=== PATIENT | female | born 1990 | race Caucasian/White ===

== ENCOUNTER 2016-06-26 19:19 | Emergency (ER) | payer OTHER ==
[~2016-06-26] VITALS: Ht 154.9 cm; Wt 65.8 kg
[2016-06-26 19:43] VITALS: BP 127/95
--- NOTE | 2016-06-26 19:53 | NUR ---
TO ER BED 8
[2016-06-26] MEDS ORDERED: IBUPROFEN 600 MG TAB PO ONE (19:55)
--- NOTE | 2016-06-26 19:58 | NUR ---
25 Y/O F HERE C/O KNEE PAIN R/T S/P FALL X 3 WKS AGO. DENIES ANY SOB, OR FEVER. AFFECTED EXTREMITY PINK, WARM TO TOUCH. DENIES ANY LOST OF SENSATION TO THE AFFECTED EXTREMITY. PT SEEMS IN PAIN. TECHNICAL SUPPORT CONSULTANT AWARED OF IT.
[2016-06-26 21:23] VITALS: BP 104/50
--- NOTE | 2016-06-26 21:23 | NUR ---
Patient discharged with v/s stable. Written and verbal after care instructions given and explained. Patient alert, oriented and verbalized understanding of instructions. Ambulatory with steady gait. All questions addressed prior to discharge. ID band removed. Patient advised to follow up with PMD. Rx of MOTRIN AND NORCO given. Patient educated on indication of medication including possible reaction and side effects. Opportunity to ask questions provided and answered.
== END 2016-06-26 21:23 | disposition home or self-care (01) ==
LOC: MED 19:19
DX: M25.562 Pain in left knee (principal)

== ENCOUNTER 2019-10-27 11:07 | Emergency (ER) | payer OTHER ==
[~2019-10-27] VITALS: Ht 167.6 cm; Wt 20.4 kg
[2019-10-27] MEDS ORDERED: KETOROLAC 60 MG/2 ML VIAL IM ONE (11:15)
[2019-10-27 11:17] VITALS: BP 120/79
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
--- NOTE | 2019-10-27 12:11 | NUR ---
PT DEMONSTRATED PROPER USE OF CRUTCHES WITHOUT ANY ISSUES
[2019-10-27 12:16] VITALS: BP 120/79
== END 2019-10-27 12:16 | disposition home or self-care (01) ==
LOC: MED 11:07
DX: S80.02XA Contusion of left knee, initial encounter (principal); W19.XXXA Unspecified fall, initial encounter; Y93.89 Activity, other specified; Y92.89 Other specified places as the place of occurrence of the external cause; Y99.8 Other external cause status
CPT/HCPCS: 73562; 96372; 99283; J1885

== ENCOUNTER 2021-01-24 15:34 | Emergency (ER) | payer OTHER ==
[~2021-01-24] VITALS: Ht 154.9 cm; Wt 63.5 kg
[2021-01-24 15:38] VITALS: BP 126/62
--- NOTE | 2021-01-24 16:25 | NUR ---
PATIENT AMBULATED TO BED 8
--- NOTE | 2021-01-24 16:26 | NUR ---
PT AMBULATED TO BED 8
--- NOTE | 2021-01-24 16:30 | NUR ---
30 Y FEMALE WITH C/O LEFT KNEE PAIN X TODAY. PT STATED SHE HAS FALLEN ON HER KNEE TWICE PRIOR TO TODAY. PT STATED SHE HAS TO STAND ON HER FEET ALL DAY FOR WORK WHICH HAS MADE IT WORSE. PT ALSO STATED "SHE FEELS LIKE HER KNEE NEEDS TO POP." SWELLING NOTED ON L KNEE AND PT UNABLE TO MAKE KNEE COMPLETELY STRAIGHT. PMH: DENIES NKA
--- NOTE | 2021-01-24 17:07 | NUR ---
DR. CORONADO BEDSIDE EVALUATING PT
--- NOTE | 2021-01-24 17:50 | NUR ---
PT AMBULATED TO RESTROOM
--- NOTE | 2021-01-24 17:51 | NUR ---
PT AMBULATED TO BED 8
--- NOTE | 2021-01-24 18:10 | NUR ---
Patient appears to be resting comfortably in bed with eyes open. Vital Signs within normal limits and charted. Respirations even and unlabored. Bed in lowest position with siderail x1 up. Will continue to monitor and assess patient
--- NOTE | 2021-01-24 18:12 | NUR ---
xray bedside with pt
[2021-01-24] MEDS ORDERED: IBUP-2213 PO (18:46)
[2021-01-24 19:00] VITALS: BP 103/63
== END 2021-01-24 19:00 | disposition home or self-care (01) ==
LOC: MED 15:34
DX: M25.562 Pain in left knee (principal); Z79.1 Long term (current) use of non-steroidal anti-inflammatories (NSAID)
CPT/HCPCS: 29505; 73562; 99283; Q0092

== ENCOUNTER 2023-04-12 09:06 | Emergency (ER) | payer OTHER ==
[~2023-04-12] VITALS: Ht 154.9 cm; Wt 84.8 kg
[~2023-04-12 09:06] MED LIST: IBUP-2213 PO
[2023-04-12 09:17] VITALS: BP 120/61; PULSE 87; RESP 16; TEMP 97.9; O2SAT 95
[2023-04-12 10:03] LABS: BILIRUBIN,URINE 1+ (NEGATIVE); BLOOD, URINE 3+ (NEGATIVE); LEUKOCYTE ESTERASE ,URINE TRACE (NEGATIVE); NITRITE, URINE POSITIVE (NEGATIVE); PH,URINE 6.5 (5.0-9.0); PROTEIN,URINE 2+ (NEGATIVE); UGLUCOSE NEGATIVE (NEGATIVE)
[2023-04-12 10:05] LABS: APPEARANCE,URINE CLOUDY (CLEAR); COLOR,URINE STRAW (YELLOW)
[2023-04-12 10:14] LABS: BACTERIA,URINE FEW /HPF (None Seen); RBC,URINE 20-50 /HPF (0-5); SQUAMOUS EPITHELIAL CELL,UR 0-3 (FEW) /LPF (0-3 (FEW)); WBC,URINE 0-5 /HPF (0-5)
[2023-04-12 10:15] LABS: ICTOTEST NEGATIVE (NEGATIVE)
[2023-04-12] MEDS ORDERED: CIPR500T4 PO ×2 (10:41→11:42)
[2023-04-12 10:47] VITALS: BP 121/70; PULSE 80; RESP 12; TEMP 98; O2SAT 98
== END 2023-04-12 10:47 | disposition home or self-care (01) ==
LOC: MED 09:06
DX: N39.0 Urinary tract infection, site not specified (principal); Z79.899 Other long term (current) drug therapy
CPT/HCPCS: 81001; 81025; 99283

== ENCOUNTER 2023-04-23 11:19 | Emergency (ER) | payer OTHER ==
[~2023-04-23] VITALS: Ht 154.9 cm; Wt 81.6 kg
[~2023-04-23 11:19] MED LIST changes: +CIPR500T4 PO
[2023-04-23 11:37] VITALS: BP 120/84; PULSE 77; RESP 18; TEMP 97.8; O2SAT 99
[2023-04-23 12:05] LABS: BILIRUBIN,URINE 2+ (NEGATIVE); BLOOD, URINE 3+ (NEGATIVE); LEUKOCYTE ESTERASE ,URINE 1+ (NEGATIVE); NITRITE, URINE POSITIVE (NEGATIVE); PROTEIN,URINE 3+ (NEGATIVE); UGLUCOSE TRACE (NEGATIVE)
[2023-04-23 12:06] LABS: APPEARANCE,URINE HAZY (CLEAR); COLOR,URINE SLIGHT BLOODY (YELLOW)
[2023-04-23 12:08] LABS: ICTOTEST POSITIVE (NEGATIVE)
[2023-04-23 12:12] LABS: BACTERIA,URINE 1+ /HPF (None Seen); RBC,URINE 50-80 /HPF (0-5); WBC,URINE 0-5 /HPF (0-5)
[2023-04-23 12:14] LABS: SQUAMOUS EPITHELIAL CELL,UR 4-10 (MOD) /LPF (0-3 (FEW))
[2023-04-23 13:29] VITALS: BP 120/86; PULSE 77; RESP 18; TEMP 97.8; O2SAT 99
[2023-04-23] MEDS ORDERED: SULF-59 PO (14:25)
[2023-04-23] MEDS ORDERED: PHEN-1877 PO (14:25)
== END 2023-04-23 13:29 | disposition home or self-care (01) ==
LOC: MED 11:19
DX: N39.0 Urinary tract infection, site not specified (principal); Z79.1 Long term (current) use of non-steroidal anti-inflammatories (NSAID); Z79.2 Long term (current) use of antibiotics
CPT/HCPCS: 81001; 81025; 87086; 99283

== ENCOUNTER 2024-02-02 08:53 | Emergency (ER) | payer OTHER ==
[~2024-02-02] VITALS: Ht 154.9 cm; Wt 79.8 kg
[~2024-02-02 08:53] MED LIST changes: +PHEN-1877 PO; +SULF-59 PO
[2024-02-02 08:59] VITALS: BP 120/71; PULSE 77; RESP 18; TEMP 98.6; O2SAT 97
[2024-02-02 09:46] LABS: FLU A ANTIGEN negative (NEGATIVE)
[2024-02-02 09:47] LABS: FLU B ANTIGEN negative (NEGATIVE)
[2024-02-02] MEDS ORDERED: PSEU120T22 PO (10:42)
[2024-02-02 10:53] VITALS: BP 120/67; PULSE 88; RESP 20; TEMP 97.3; O2SAT 98
== END 2024-02-02 10:54 | disposition home or self-care (01) ==
LOC: MED 08:53
DX: R09.81 Nasal congestion (principal); H57.89 Other specified disorders of eye and adnexa; F12.90 Cannabis use, unspecified, uncomplicated; Z20.822 Contact with and (suspected) exposure to COVID-19; Z79.899 Other long term (current) drug therapy
CPT/HCPCS: 99283